=== PATIENT | female | born 1975 | race Caucasian/White ===

== ENCOUNTER 2017-09-20 16:08 | Emergency (ER) | payer OTHER ==
[~2017-09-20] VITALS: Ht 170.2 cm; Wt 128.3 kg
[2017-09-20] MEDS ORDERED: INDOCIN50 MG PO (22:26)
[2017-09-20] MEDS ORDERED: VALIUM5 MG PO (22:26)
[2017-09-20] MEDS ORDERED: ULTRACET1 TABLET PO (22:26)
[2017-09-20 22:44] VITALS: BP 139/78
== END 2017-09-20 22:45 | disposition home or self-care (01) ==
LOC: EME 16:08
DX: M54.41 Lumbago with sciatica, right side (principal); S70.01XA Contusion of right hip, initial encounter; W00.0XXA Fall on same level due to ice and snow, initial encounter; Y99.0 Civilian activity done for income or pay; Z88.5 Allergy status to narcotic agent
CPT/HCPCS: 72100; 72220; 73502; 99281; 99283